=== PATIENT | female | born 2000 | race Caucasian/White ===

== ENCOUNTER 2020-10-28 06:24 | Emergency (ER) | payer MEDICAID ==
[~2020-10-28] VITALS: Ht 170.2 cm; Wt 101.0 kg
[2020-10-28 06:35] VITALS: BP 160/95
[2020-10-28] MEDS ORDERED: PYRIDOXINE 100 MG/ML VIAL. IV ONE (06:45)
[2020-10-28] MEDS ORDERED: IV NORMAL SALINE 1,000ML 1,000 ML IV ONE (06:45)
[2020-10-28] MEDS ORDERED: diphenhydrAMINE 50 MG/ML VIAL IVP ONE (06:45)
--- NOTE | 2020-10-28 06:45 | PHYS DOC ---
General Adult HPI: HPI: History of pain from patient. Patient is a 19-year-old female with past medical history significant for cholecystectomy who presents with chief complaint of nausea and vomiting. Patient states the first day of her last menstrual period was September 09, 2020. She states she developed nausea 1 week ago. She notes she has had multiple episodes of nonbloody nonbilious emesis over the past 3 days. Does note mild epigastric discomfort. She has tried Tums at home with minimal relief. She does states she has an ultrasound scheduled in 2 weeks for her care. She states she has not seen LIFE TRAINER yet. She notes she did not have any nausea or vomiting this severe with her previous . Denies any dysuria, hematuria, or polyuria. No syncope. Denies vaginal bleeding or discharge. Denies chest pain or shortness of breath. Denies fevers. No other complaints. Review of Systems: Review of Systems: Constitutional: Denies fever or chills Eyes: Denies change in visual acuity HENT: Denies nasal congestion or sore throat Respiratory: Denies cough or shortness of breath Cardiovascular: Denies chest pain or edema GI: Positive for nausea, vomiting, abdominal pain : Denies dysuria Musculoskeletal: Denies back pain or joint pain Integument: Denies rash Neurologic: Denies headache, focal weakness or sensory changes Endocrine: Denies polyuria or polydipsia Lymphatic: Denies swollen glands Psychiatric: Denies depression or anxiety Physical Exam: PE: Constitutional: Well developed, well nourished, no acute distress, non-toxic appearance. [] HENT: Normocephalic, atraumatic, bilateral external ears normal, oropharynx moist, no oral exudates, nose normal. [] Eyes: PERRLA, EOMI, conjunctiva normal, no discharge. [] Neck: Normal range of motion, no tenderness, supple, no stridor. [] Cardiovascular:Heart rate regular rhythm, no murmur [] Lungs & Thorax: Bilateral breath sounds clear to auscultation [] Abdomen: Soft, nontender, nonacute abdomen. No involuntary guarding or rigidity noted. No acute peritonitis. Skin: Warm, dry, no erythema, no rash. [] Back: No tenderness, no CVA tenderness. [] Extremities: No tenderness, no cyanosis, no clubbing, ROM intact, no edema. [] Neurologic: Alert and oriented X 3, normal motor function, normal sensory function, no focal deficits noted. [] Psychologic: Affect normal, judgement normal, mood normal. [] Current Patient Data: Labs: Laboratory Tests Test 10/28/20 06:58 10/28/20 08:31 White Blood Count 10.3 x10^3/uL Red Blood Count 5.42 x10^6/uL Hemoglobin 12.6 g/dL Hematocrit 39.1 % Mean Corpuscular Volume 72 fL Mean Corpuscular Hemoglobin 23 pg Mean Corpuscular Hemoglobin Concent 32 g/dL Red Cell Distribution Width 15.5 % Platelet Count 312 x10^3/uL Neutrophils (%) (Auto) 62 % Lymphocytes (%) (Auto) 30 % Monocytes (%) (Auto) 6 % Eosinophils (%) (Auto) 2 % Basophils (%) (Auto) 1 % Neutrophils # (Auto) 6.4 x10^3uL Lymphocytes # (Auto) 3.1 x10^3/uL Monocytes # (Auto) 0.6 x10^3/uL Eosinophils # (Auto) 0.2 x10^3/uL Basophils # (Auto) 0.1 x10^3/uL Maternal Serum HCG Beta Subunit 58914 mIU/mL Sodium Level 138 mmol/L Potassium Level 3.4 mmol/L Chloride Level 103 mmol/L Carbon Dioxide Level 23 mmol/L Anion Gap 12 Blood Urea Nitrogen 7 mg/dL Creatinine 0.6 mg/dL Estimated GFR (Cockcroft-Gault) 127.5 BUN/Creatinine Ratio 12 Glucose Level 89 mg/dL Calcium Level 8.9 mg/dL Magnesium Level 1.8 mg/dL Total Bilirubin 0.3 mg/dL Aspartate Amino Transf (AST/SGOT) 18 U/L Alanine Aminotransferase (ALT/SGPT) 36 U/L Alkaline Phosphatase 87 U/L Total Protein 7.4 g/dL Albumin 3.4 g/dL Albumin/Globulin Ratio 0.9 Lipase 87 U/L Urine Collection Type Unknown Urine Color Yellow Urine Clarity Hazy Urine pH 6.0 Urine Specific [place] >=1.030 Urine Protein Neg Urine Glucose (UA) Neg mg/dL Urine Ketones (Stick) Neg mg/dL Urine Blood Mod Urine Nitrite Neg Urine Bilirubin Neg Urine Urobilinogen Dipstick 0.2 mg/dL Urine Leukocyte Esterase Trace Urine RBC 20-40 /HPF Urine WBC 5-10 /HPF Urine Squamous Epithelial Cells Mod /LPF Urine Bacteria Mod /HPF Urine Mucus Slight /LPF Current Medications Medications (Trade) Dose Ordered Sig/[place] Route PRN Reason Start Time Stop Time Status Last Admin Dose Admin Sodium Chloride 1,000 ml @ 1,000 mls/hr 1X ONCE IV 10/28/20 06:45 10/28/20 07:44 DC 10/28/20 08:00 Diphenhydramine HCl (Benadryl) 50 mg 1X ONCE IVP 10/28/20 06:45 10/28/20 07:01 DC 10/28/20 08:00 Pyridoxine HCl (Vitamin B6) 25 mg 1X ONCE IV 10/28/20 06:45 10/28/20 07:01 DC 10/28/20 06:45 Famotidine (Pepcid Vial) 20 mg 1X ONCE IVP 10/28/20 07:00 10/28/20 07:01 DC 10/28/20 08:00 Promethazine HCl (Phenergan) 25 mg 1X ONCE PO 10/28/20 08:15 10/28/20 08:19 DC 10/28/20 08:15 Vital Signs: Vital Signs Date Time Temp Pulse Resp B/P (MAP) Pulse Ox O2 Delivery O2 Flow Rate FiO2 10/28/20 06:35 98.6 96 18 160/95 (116) 100 Room Air EKG: EKG: [] Radiology/Procedures: Radiology/Procedures: [address] [address] IMAGING REPORT Signed PATIENT: MANINDER BEY ACCOUNT: [id number] : 2000 LOCATION: ER AGE: 19 SEX: F EXAM STATUS: REG ER ORD. PHYSICIAN: DOMO NOGUERA DO REASON: abdominal pain with . no previous US PROCEDURE: OB <14 WKS W/TV Transvaginal obstetric ultrasound less than 14 weeks HISTORY: Abdominal pain with . FINDINGS: Transabdominal imaging is limited visualization of uterus and ovaries, there is a intrauterine gestational sac noted. Transvaginal sonography demonstrates anteverted uterus measuring 9.4 x 6.0 x 5.2 cm. There is a fundal intrauterine gestational sac with a pole crown-rump length 0.51 cm estimating sonographic gestational age of 6 weeks 2 days and estimated date of delivery June 21, 2021. Active cardiac activity is noted on the saved imaging clips and heart rate on M-mode Doppler sonography is 113 bpm. No subchorionic hemorrhage. Subjectively normal volume of amniotic fluid. Small yolk sac is noted with a diameter of 0.3 cm. Right ovary measures 4.8 x 1.6 x 3.0 cm. Small right ovarian follicles. There is a right ovarian 2.4 x 1.1 x 1.6 cm oval hypoechoic thick-walled cystic focus with peripheral hypervascularity typical of a corpus luteum. Intact right ovarian blood flow. Left ovary could not be visualized. There is a small volume of free fluid at the left adnexa. Cervix visually is long and closed the length was not measured by the garment worker although likely approaches 3 cm. IMPRESSION: Single viable intrauterine with estimated sonographic gestational age of 6 weeks 2 days. Probable right ovarian corpus luteum, attention on follow-up will be of benefit. See above. Electronically signed by: Amina Moctezuma MD (10/28/2020 8:12 AM) [id number] DICTATED AND SIGNED BY: AMINA MOCTEZUMA MD DATE: 10/28/20808 CC: PCPLATASHA; DOMO NOGUERA DO ~MTH0 0 [] Heart Score: Risk Factors: Risk Factors: DM, Current or recent (<one month) smoker, HTN, HLP, family history of CAD, obesity. Risk Scores: Score 0 - 3: 2.5% MACE over next 6 weeks - Discharge Home Score 4 - 6: 20.3% MACE over next 6 weeks - Admit for Clinical Observation Score 7 - 10: 72.7% MACE over next 6 weeks - Early Invasive Strategies Course & Med Decision Making: Course & Med Decision Making Pertinent Labs and Imaging studies reviewed. (See chart for details) [] Patient is a well-appearing 19-year-old female who presents with chief complaint of nausea and vomiting associated . Initial vital signs unremarkable. Exam overall reassuring and noted above. ultrasound does confirm an intrauterine estimated age 6 weeks and 2 days. Basic labs were obtained and but showed no significant lecture light abnormalities. Labs not consistent with hyperemesis gravidarum. Urinalysis does show some bacteria. Given her current status she will given a short course of Keflex. Urine culture will be sent. Patient's nausea has been well controlled in the emergency department. She was given IV fluids. She has tolerated p.o. Repeat abdominal exam is benign. Patient is appropriate for discharge home. She will discharge home with antiemetics. Instructed to follow-up with her primary care physician as well as her LIFE TRAINER in the next 2 to 3 days. Return precautions discussed and understood. Stable for discharge home. Dragon Disclaimer: Dragon Disclaimer: This electronic medical record was generated, in whole or in part, using a voice recognition dictation system. Departure Departure: Impression: Primary Impression: Qualified Codes: Z3A.01 - Less than 8 weeks gestation of Additional Impression: Nausea and vomiting Qualified Codes: R11.2 - Nausea with vomiting, unspecified Disposition: 01 DC HOME SELF CARE/HOMELESS Condition: STABLE Referrals: PCP,NO (PCP) Patient Instructions: Nausea and Vomiting Scripts Metoclopramide Hcl (REGLAN) 5 Mg Tablet 1 TAB PO TID PRN PRN for NAUSEA, #10 TAB 0 Refills Prov: DOMO NOGUERA DO 10/28/20 Cephalexin (CEPHALEXIN) 500 Mg Capsule 1 CAP PO BID for uti for 5 Days, #10 CAP Prov: DOMO NOGUERA DO 10/28/20 DOMO NOGUERA DO Oct 28, 2020 06:45
[2020-10-28] MEDS ORDERED: FAMOTIDINE 20 MG/2 ML VIAL IVP ONE (07:00)
[2020-10-28 07:18] LABS: BASO # 0.1 x10^3/uL (0.0-0.2); BASO % 1 % (0-3); EOS # 0.2 x10^3/uL (0.0-0.7); EOS % 2 % (0-3); HEMATOCRIT 39.1 % (36.0-47.0); HEMOGLOBIN 12.6 g/dL (12.0-15.5); LYMPH # 3.1 x10^3/uL (1.0-4.8); LYMPH % 30 % (24-48); MEAN CORPUSCULAR HEMOGLOBIN 23 pg (25-35); MEAN CORPUSCULAR HGB CONC 32 g/dL (31-37); MEAN CORPUSCULAR VOLUME 72 fL (79-100); MONO # 0.6 x10^3/uL (0.0-1.1); MONO % 6 % (0-9); NEUT # 6.4 x10^3uL (1.8-7.7); NEUT % 62 % (31-73); PLATELET COUNT 312 x10^3/uL (140-400); RED BLOOD COUNT 5.42 x10^6/uL (3.50-5.40); RED CELL DISTRIBUTION WIDTH 15.5 % (11.5-14.5); WHITE BLOOD COUNT 10.3 x10^3/uL (4.0-11.0)
[2020-10-28 07:24] LABS: CALCIUM 8.9 mg/dL (8.5-10.1); CREATININE 0.6 mg/dL (0.6-1.0); GFR 127.5; POTASSIUM 3.4 mmol/L (3.5-5.1)
[2020-10-28 07:30] LABS: ALBUMIN 3.4 g/dL (3.4-5.0); ALBUMIN/GLOBULIN RATIO 0.9 (1.0-1.7); MAGNESIUM 1.8 mg/dL (1.8-2.4); TOTAL BILIRUBIN 0.3 mg/dL (0.2-1.0); TOTAL PROTEIN 7.4 g/dL (6.4-8.2)
[2020-10-28] MEDS ORDERED: PROMETHAZINE 25 MG TABLET. PO ONE (08:15)
--- NOTE | 2020-10-28 08:15 | RAD ---
Transvaginal obstetric ultrasound less than 14 weeks HISTORY: Abdominal pain with . FINDINGS: Transabdominal imaging is limited visualization of uterus and ovaries, there is a intrauter ine gestational sac noted. Transvaginal sonography demonstrates anteverted uterus measuring 9.4 x 6.0 x 5.2 cm. There is a laureano l intrauterine gestational sac with a pole crown-rump length 0.51 cm estimating sonographic ges tational age of 6 weeks 2 days and estimated date of delivery June 21, 2021. Active cardiac a ctivity is noted on the saved imaging clips and heart rate on M-mode Doppler sonography is 113 bpm. No subchorionic hemorrhage. Subjectively normal volume of amniotic fluid. Small yolk sac is note d with a diameter of 0.3 cm. Right ovary measures 4.8 x 1.6 x 3.0 cm. Small right ovarian follicles. There is a right ovarian 2.4 x 1.1 x 1.6 cm oval hypoechoic thick-walled cystic focus with peripheral hypervascularity typical of a corpus luteum. Intact right ovarian blood flow. Left ovary could not be visualized. There is a smal l volume of free fluid at the left adnexa. Cervix visually is long and closed the length was not barbara ured by the maintenance coordinator although likely approaches 3 cm. IMPRESSION: Single viable intrauterine with estimated sonographic gestational age of 6 week s 2 days. Probable right ovarian corpus luteum, attention on follow-up will be of benefit. See above. Electronically signed by: Marek Moctezuma MD (10/28/2020 8:12 AM) [id number]
[2020-10-28 09:21] LABS: BACTERIA,URINE MOD /HPF (0-FEW); BILIRUBIN,URINE NEG (NEG); CLARITY,URINE HAZY; COLOR,URINE YELLOW; GLUCOSE,URINE NEG (NEG); NITRITE,URINE NEG (NEG); RBC,URINE 20-40 /HPF (0-2); UROBILINOGEN,URINE 0.2 mg/dL (0.2 mg/dL)
[2020-10-28 09:22] LABS: SQUAMOUS EPITHELIAL CELL,UR MOD /LPF
[2020-10-28] MEDS ORDERED: CEPH500C PO (09:31)
[2020-10-28] MEDS ORDERED: METO5TAB55 PO (09:31)
== END 2020-10-28 09:39 | disposition home or self-care (01) ==
LOC: ER 06:24
DX: O21.9 Vomiting of pregnancy, unspecified (principal); Z3A.01 Less than 8 weeks gestation of pregnancy
CPT/HCPCS: 36415; 76801; 76817; 80053; 81001; 83690; 83735; 84702; 85025; 87086; 96361; 96374; 96375; 99284; J1200; J3415; J3490; J7030; Q0169

== ENCOUNTER 2021-01-13 19:42 | Emergency (ER) | payer MEDICAID ==
[~2021-01-13] VITALS: Ht 170.2 cm; Wt 95.0 kg
[~2021-01-13 19:42] MED LIST: CEPH500C PO; METO5TAB55 PO
[2021-01-13 20:00] VITALS: BP 138/67
--- NOTE | 2021-01-13 20:10 | PHYS DOC ---
Past History Past Medical History: Kidney Stones Past Surgical History: Cholecystectomy Alcohol Use: None General Adult EDM: Chief Complaint: ABDOMINAL PAIN IN HPI: HPI: 20-year-old female presents with sudden onset left flank pain. She describes the pain is a sharp sensation of moderate intensity. She is 18 weeks . She has a history of kidney stones. She states that the pain has radiated around to the lower pelvis at this time. She denies any cramping, contractions, or vaginal bleeding. Denies fever or chills. She has had trouble with nausea throughout her . [employer] does not work for her. She is feeling nauseated at this time. Review of Systems: Review of Systems: Constitutional: Denies fever or chills Eyes: Denies change in visual acuity HENT: Denies nasal congestion or sore throat Respiratory: Denies cough or shortness of breath Cardiovascular: Denies chest pain or edema GI: Suprapubic pain, left flank pain, nausea, vomiting. Denies bloody stools or diarrhea : Denies dysuria Musculoskeletal: Denies back pain or joint pain Integument: Denies rash Neurologic: Denies headache, focal weakness or sensory changes Endocrine: Denies polyuria or polydipsia Lymphatic: Denies swollen glands Psychiatric: Denies depression or anxiety Allergies: Allergies: Allergies Coded Allergies Type Severity Reaction Last Updated Verified No Known Allergies Allergy Unknown 10/28/20 Yes Physical Exam: PE: Constitutional: Well developed, well nourished, no acute distress, non-toxic appearance. [] HENT: Normocephalic, atraumatic, bilateral external ears normal, oropharynx moist, no oral exudates, nose normal. [] Eyes: PERRLA, EOMI, conjunctiva normal, no discharge. [] Neck: Normal range of motion, no tenderness, supple, no stridor. [] Cardiovascular: Heart rate regular rhythm, no murmur [] Lungs & Thorax: Bilateral breath sounds clear to auscultation [] Abdomen: Bowel sounds normal, gravid uterus, no tenderness.[] Skin: Warm, dry, no erythema, no rash. [] Back: No tenderness, mild left CVA tenderness. [] Extremities: No tenderness, no cyanosis, no clubbing, ROM intact, no edema. [] Neurologic: Alert and oriented X 3, normal motor function, normal sensory function, no focal deficits noted. [] Psychologic: Affect normal, judgement normal, mood normal. [] Current Patient Data: Labs: Laboratory Tests Test 01/13/21 20:00 POC Urine HCG, Qualitative hcg positive (Negative) Vital Signs: Vital Signs Date Time Temp Pulse Resp B/P (MAP) Pulse Ox O2 Delivery O2 Flow Rate FiO2 01/13/21 20:00 97.3 112 20 138/67 (90) 96 Room Air EKG: EKG: [] Radiology/Procedures: Radiology/Procedures: [] Impressions: EXAM: RENAL/RETROPERITONAL ULTRASOUND. HISTORY: Flank pain in , history of renal stones. COMPARISON: None. FINDINGS: Ultrasound of the kidneys, bladder and retroperitoneum was performed. The right kidney measures 12.7 cm. Cortical thickness and echogenicity are preserved. There is no hydronephrosis. An extrarenal pelvis is suspected. The left kidney measures 13.3 cm. Cortical thickness and echogenicity are preserved. The left renal pelvis and calyces are mildly prominent. Images of the bladder reveal no gross abnormality. Both ureteral jets are visualized. The abdominal aorta and inferior vena cava are grossly patent and normal in caliber. A gravid uterus is noted. IMPRESSION: 1. Mild prominence of the left renal collecting system may be an incidental finding the setting of . No stones are identified sonographically. Both ureteral jets are visualized. Electronically signed by: Tristin Carrera MD (01/13/2021 9:47 PM) [facility] DICTATED AND SIGNED BY: ASIF CARRERA MD DATE: 01/13/212144 CC: ORLANDO MONTES CNM; KIA CALDWELL DO ~MTH0 0 Heart Score: C/O Chest Pain: N/A Risk Factors: Risk Factors: DM, Current or recent (<one month) smoker, HTN, HLP, family history of CAD, obesity. Risk Scores: Score 0 - 3: 2.5% MACE over next 6 weeks - Discharge Home Score 4 - 6: 20.3% MACE over next 6 weeks - Admit for Clinical Observation Score 7 - 10: 72.7% MACE over next 6 weeks - Early Invasive Strategies Course & Med Decision Making: Course & Med Decision Making Pertinent Labs and Imaging studies reviewed. (See chart for details) Patient's labs are unremarkable. Ultrasound shows no definitive kidney stone. See official report for more details. I did give the patient Tylenol for her discomfort but she vomited. It seems likely that this was a passed kidney stone. I have made the patient aware of these results. She is stable for discharge at this time. [] Dragon Disclaimer: Dragon Disclaimer: This electronic medical record was generated, in whole or in part, using a voice recognition dictation system. Departure Departure: Impression: Primary Impression: Kidney stone complicating Additional Impression: UTI (urinary tract infection) Disposition: HOME / SELF CARE / HOMELESS Condition: STABLE Referrals: ORLANDO MONTES CNM (PCP) Patient Instructions: Kidney Stones, [place] Scripts Cephalexin (CEPHALEXIN) 500 Mg Tablet 1 TAB PO BID for UTI for 5 Days, #10 TAB Prov: KIA CALDWELL DO 01/13/21 KIA CALDWELL DO Jan 13, 2021 20:10
[2021-01-13] MEDS ORDERED: diphenhydrAMINE 50 MG/ML VIAL IVP ONE (20:15)
[2021-01-13 20:26] LABS: BACTERIA,URINE 0 /HPF (0-FEW); BILIRUBIN,URINE NEG (NEG); CLARITY,URINE CLEAR; COLOR,URINE COLORLESS; GLUCOSE,URINE NEG (NEG); NITRITE,URINE POS (NEG); RBC,URINE 0 /HPF (0-2); UROBILINOGEN,URINE 0.2 mg/dL (0.2 mg/dL); WBC,URINE 0 /HPF (0-4)
[2021-01-13 20:27] LABS: SQUAMOUS EPITHELIAL CELL,UR FEW /LPF
[2021-01-13 20:35] LABS: BASO # 0.1 x10^3/uL (0.0-0.2); BASO % 1 % (0-3); EOS # 0.1 x10^3/uL (0.0-0.7); EOS % 2 % (0-3); HEMATOCRIT 35.8 % (36.0-47.0); HEMOGLOBIN 12.1 g/dL (12.0-15.5); LYMPH % 25 % (24-48); MEAN CORPUSCULAR HEMOGLOBIN 26 pg (25-35); MEAN CORPUSCULAR HGB CONC 34 g/dL (31-37); MEAN CORPUSCULAR VOLUME 76 fL (79-100); MONO # 0.5 x10^3/uL (0.0-1.1); MONO % 6 % (0-9); NEUT # 5.5 x10^3uL (1.8-7.7); NEUT % 67 % (31-73); PLATELET COUNT 267 x10^3/uL (140-400); RED BLOOD COUNT 4.73 x10^6/uL (3.50-5.40); RED CELL DISTRIBUTION WIDTH 16.5 % (11.5-14.5); WHITE BLOOD COUNT 8.2 x10^3/uL (4.0-11.0)
[2021-01-13 20:45] LABS: CALCIUM 8.8 mg/dL (8.5-10.1); CREATININE 0.6 mg/dL (0.6-1.0); GFR 126.2; POTASSIUM 3.4 mmol/L (3.5-5.1)
[2021-01-13 20:50] LABS: ALBUMIN 2.9 g/dL (3.4-5.0); ALBUMIN/GLOBULIN RATIO 0.7 (1.0-1.7); TOTAL BILIRUBIN 0.2 mg/dL (0.2-1.0); TOTAL PROTEIN 7.1 g/dL (6.4-8.2)
[2021-01-13] MEDS ORDERED: ONDANSETRON PF 4 MG/2 ML VIAL. IVP ONE (21:00)
[2021-01-13] MEDS ORDERED: ACETAMINOPHEN 500 MG TABLET PO ONE (21:00)
--- NOTE | 2021-01-13 21:50 | RAD ---
EXAM: RENAL/RETROPERITONAL ULTRASOUND. HISTORY: Flank pain in , history of renal stones. COMPARISON: None. FINDINGS: Ultrasound of the kidneys, bladder and retroperitoneum was performed. The right kidney measures 12.7 cm. Cortical thickness and echogenicity are preserved. There is no hyd ronephrosis. An extrarenal pelvis is suspected. The left kidney measures 13.3 cm. Cortical thickness and echogenicity are preserved. The left renal p shelbi and calyces are mildly prominent. Images of the bladder reveal no gross abnormality. Both ureteral jets are visualized. The abdominal a janett and inferior vena cava are grossly patent and normal in caliber. A gravid uterus is noted. IMPRESSION: 1. Mild prominence of the left renal collecting system may be an incidental finding the setting of pr egnancy. No stones are identified sonographically. Both ureteral jets are visualized. Electronically signed by: Tristin Carrera MD (01/13/2021 9:47 PM) [facility]
[2021-01-13] MEDS ORDERED: CEPHALEXIN 250 MG CAPSULE PO ONE (23:30)
[2021-01-13] MEDS ORDERED: CEPH500T PO (23:36)
== END 2021-01-13 23:46 | disposition home or self-care (01) ==
LOC: ER 19:42
DX: O23.42 Unspecified infection of urinary tract in pregnancy, second trimester (principal); O26.832 Pregnancy related renal disease, second trimester; N20.0 Calculus of kidney; Z90.49 Acquired absence of other specified parts of digestive tract; Z3A.18 18 weeks gestation of pregnancy
CPT/HCPCS: 36415; 76770; 80053; 81001; 81025; 85025; 87086; 96374; 96375; 99284; J1200; J2405

== ENCOUNTER 2021-01-20 16:02 | Emergency (ER) | payer MEDICAID ==
[~2021-01-20] VITALS: Ht 170.2 cm; Wt 94.1 kg
[~2021-01-20 16:02] MED LIST changes: +CEPH500T PO
[2021-01-20 16:13] VITALS: BP 115/72
[2021-01-20] MEDS ORDERED: diphenhydrAMINE 50 MG/ML VIAL IVP ONE (17:00)
[2021-01-20] MEDS ORDERED: METOCLOPRAMIDE HCL 10 MG/2 ML VIAL. IVP ONE (17:00)
[2021-01-20 17:10] LABS: BASO % 0 % (0-3); EOS # 0.1 x10^3/uL (0.0-0.7); EOS % 1 % (0-3); HEMATOCRIT 35.3 % (36.0-47.0); HEMOGLOBIN 11.9 g/dL (12.0-15.5); LYMPH # 1.7 x10^3/uL (1.0-4.8); LYMPH % 19 % (24-48); MEAN CORPUSCULAR HEMOGLOBIN 26 pg (25-35); MEAN CORPUSCULAR HGB CONC 34 g/dL (31-37); MEAN CORPUSCULAR VOLUME 76 fL (79-100); MONO # 0.5 x10^3/uL (0.0-1.1); MONO % 6 % (0-9); NEUT # 6.6 x10^3uL (1.8-7.7); NEUT % 74 % (31-73); PLATELET COUNT 282 x10^3/uL (140-400); RED BLOOD COUNT 4.64 x10^6/uL (3.50-5.40); RED CELL DISTRIBUTION WIDTH 16.2 % (11.5-14.5); WHITE BLOOD COUNT 8.9 x10^3/uL (4.0-11.0)
[2021-01-20 17:14] LABS: CALCIUM 8.9 mg/dL (8.5-10.1); CREATININE 0.6 mg/dL (0.6-1.0); GFR 126.2; POTASSIUM 3.3 mmol/L (3.5-5.1)
[2021-01-20] MEDS ORDERED: IV NORMAL SALINE 1,000ML 1,000 ML IV ONE (17:15)
[2021-01-20] MEDS ORDERED: ACETAMINOPHEN 500 MG TABLET PO ONE (17:15)
[2021-01-20 17:27] LABS: ALBUMIN 2.8 g/dL (3.4-5.0); ALBUMIN/GLOBULIN RATIO 0.7 (1.0-1.7); TOTAL BILIRUBIN 0.3 mg/dL (0.2-1.0)
--- NOTE | 2021-01-20 18:14 | EKG ---
[address] [address] Test Date: 2021-01-20 Test Time: 17:02:21 Pat Name: MANINDER BEY Department: Room: Gender: F Legal Financial Specialist: HARITHA : 2000 Requested By: ARLETTE MARVIN Order Number: [id number] Reading MD: Measurements Intervals [place] Rate: 99 P: 35 [place]: 164 QRS: -38 QRSD: 102 T: 18 QT: 348 QTc: 452 Interpretive Statements SINUS RHYTHM ABNORMAL LEFT AXIS DEVIATION LEFT ANTERIOR FASCICULAR BLOCK INCOMPLETE RIGHT BUNDLE BRANCH BLOCK ABNORMAL ECG RI6.02 No previous ECG available for comparison
--- NOTE | 2021-01-20 18:41 | PHYS DOC ---
Past History Past Medical History: Depression, Kidney Stones (STEVEN MARVIN APRN) Past Surgical History: Cholecystectomy Additional Past Surgical Histo: ADENOIDS (STEVEN MARVIN APRN) Alcohol Use: None (STEVEN MARVIN APRN) Adult General Chief Complaint Chief Complaint: ABDOMINAL PAIN HPI HPI Patient is a 20-year-old female who presents emergency department complaining of right-sided kidney pain that started 8 days ago. Patient reports she was seen here 8 days ago and was diagnosed with a urinary tract infection. Patient states that the next day she was seen by her [employer] Amanda Aleman who sent her to [facility] ER to test her for pyelonephritis which she did not have and was recommended she continue her Keflex regimen over 5 days. Patient states that each and every day she has had right sided flank pain that radiates down to her low abdomen with vomiting shortness of breath dizziness and feeling "woozy ". Patient denies any rashes of her skin, denies any swelling of her legs. Patient denies any immediate family history of blood clotting diseases however she believes her grandfather might have had a blood clot. Patient states that she cannot feel her baby move however she has not been able to feel her baby move throughout this . Patient states that a abdominal sonogram was done last week to look at her kidney which noted movement and a heartbeat. Patient states that she is concerned that she still has kidney pain and believes she might have a kidney stone or a kidney infection. Patient denies any other physical complaints or physical concerns. Patient reports her last menstrual cycle was 09 September, states estimated date of confinement June 16, 2021, 2 para 1. (STEVEN MARVIN APRN) Review of Systems Review of Systems Constitutional: Denies fever or chills [] Eyes: Denies change in visual acuity, redness, or eye pain [] HENT: Denies nasal congestion or sore throat [] Respiratory: Denies cough or shortness of breath [] Cardiovascular: No additional information not addressed in HPI [] GI: Denies abdominal pain, nausea, vomiting, bloody stools or diarrhea [] : Denies dysuria or hematuria [] Musculoskeletal: Denies back pain or joint pain [] Integument: Denies rash or skin lesions [] Neurologic: Denies headache, focal weakness or sensory changes [] Endocrine: Denies polyuria or polydipsia [] All other systems were reviewed and found to be within normal limits, except as documented in this note. (STEVEN MARVIN APRN) Current Medications Current Medications Current Medications Medications (Trade) Dose Ordered Sig/Ansley Start Time Stop Time Status Last Admin Dose Admin Acetaminophen (Tylenol) 1,000 mg 1X ONCE 01/20/21 17:15 01/20/21 17:16 DC Diphenhydramine HCl (Benadryl) 25 mg 1X ONCE 01/20/21 17:00 01/20/21 17:02 DC 01/20/21 17:11 25 MG Metoclopramide HCl (Reglan Vial) 5 mg 1X ONCE 01/20/21 17:00 01/20/21 17:02 DC 01/20/21 17:10 5 MG Sodium Chloride 1,000 ml @ 1,000 mls/hr 1X ONCE 01/20/21 17:15 01/20/21 17:54 DC 01/20/21 17:11 1,000 MLS/HR (STEVEN MARVIN APRN) Allergies Allergies Allergies Coded Allergies Type Severity Reaction Last Updated Verified No Known Allergies Allergy Unknown 10/28/20 Yes (STEVEN MARVIN APRN) Physical Exam Physical Exam Constitutional: Well developed, well nourished, no acute distress, non-toxic appearance. Patient anxious and tearful during physical examination. Patient is in no respiratory distress. HENT: Normocephalic, atraumatic, bilateral external ears normal, oropharynx moist, no oral exudates, nose normal. Eyes: PERRLA, EOMI, conjunctiva normal, no discharge. Neck: Normal range of motion, no tenderness, supple, no stridor. No meningismus signs, no nuchal rigidity. Cardiovascular:Heart rate regular rhythm, no murmur, heart sounds S1-S2 to auscultation. Lungs & Thorax: Bilateral breath sounds clear to auscultation no adventitious lung sounds appreciated. Abdomen: Bowel sounds normal, soft, no tenderness, no masses, no pulsatile masses. No bruising or ecchymotic areas noted to the abdomen. No rashes noted to the abdomen. Skin: Warm, dry, no erythema, no rash. No rashes or lesions noted to skin. Back: No midline spinal tenderness appreciated, no left-sided CVA tenderness appreciated, positive right-sided CVA tenderness to light palpation that radiates down right flank across to right sided pelvic area. Extremities: No tenderness, no cyanosis, no clubbing, ROM intact, no edema. No swelling of lower extremities, no edema appreciated, +2/4 pulses, distal cap refill less than 2 seconds. Neurologic: Alert and oriented X 3, normal motor function, normal sensory function, no focal deficits noted. Psychologic: Affect normal, judgement normal, mood normal. (STEVEN MARVIN APRN) Physical Exam Constitutional: Well developed, well nourished, tearful, non-toxic appearance HENT: Normocephalic, atraumatic Eyes: Conjunctiva normal, no discharge Neck: Normal range of motion, supple Lungs & Thorax: No respiratory distress, equal chest rise and fall Abdomen: Soft, gravid Skin: Warm, dry, no erythema, stretch singh to abdomen and flanks with back acne noted without vesicular rash Back: No tenderness, right CVA tenderness Extremities: No tenderness, ROM intact, no edema Neurologic: Alert and oriented X 3, no focal deficits noted Psychologic: Affect anxious, judgment normal (STEVEN KENNY DO) Current Patient Data Vital Signs Vital Signs Date Time Temp Pulse Resp B/P (MAP) Pulse Ox O2 Delivery O2 Flow Rate FiO2 01/20/21 17:00 110 22 98 01/20/21 16:13 98.4 115/72 (86) Room Air Lab Results Laboratory Tests Test 01/20/21 16:29 White Blood Count 8.9 x10^3/uL (4.0-11.0) Red Blood Count 4.64 x10^6/uL (3.50-5.40) Hemoglobin 11.9 g/dL (12.0-15.5) L Hematocrit 35.3 % (36.0-47.0) L Mean Corpuscular Volume 76 fL (79-100) L Mean Corpuscular Hemoglobin 26 pg (25-35) Mean Corpuscular Hemoglobin Concent 34 g/dL (31-37) Red Cell Distribution Width 16.2 % (11.5-14.5) H Platelet Count 282 x10^3/uL (140-400) Neutrophils (%) (Auto) 74 % (31-73) H Lymphocytes (%) (Auto) 19 % (24-48) L Monocytes (%) (Auto) 6 % (0-9) Eosinophils (%) (Auto) 1 % (0-3) Basophils (%) (Auto) 0 % (0-3) Neutrophils # (Auto) 6.6 x10^3uL (1.8-7.7) Lymphocytes # (Auto) 1.7 x10^3/uL (1.0-4.8) Monocytes # (Auto) 0.5 x10^3/uL (0.0-1.1) Eosinophils # (Auto) 0.1 x10^3/uL (0.0-0.7) Basophils # (Auto) 0.0 x10^3/uL (0.0-0.2) Sodium Level 138 mmol/L (136-145) Potassium Level 3.3 mmol/L (3.5-5.1) L Chloride Level 104 mmol/L (98-107) Carbon Dioxide Level 21 mmol/L (21-32) Anion Gap 13 (6-14) Blood Urea Nitrogen 5 mg/dL (7-20) L Creatinine 0.6 mg/dL (0.6-1.0) Estimated GFR (Cockcroft-Gault) 126.2 BUN/Creatinine Ratio 8 (6-20) Glucose Level 111 mg/dL (70-99) H Calcium Level 8.9 mg/dL (8.5-10.1) Total Bilirubin 0.3 mg/dL (0.2-1.0) Aspartate Amino Transferase (AST) 13 U/L (15-37) L Alanine Aminotransferase (ALT) 18 U/L (14-59) Alkaline Phosphatase 103 U/L (46-116) Total Protein 7.0 g/dL (6.4-8.2) Albumin 2.8 g/dL (3.4-5.0) L Albumin/Globulin Ratio 0.7 (1.0-1.7) L Lipase 68 U/L (73-393) L (STEVEN MARVIN APRN) EKG EKG EKG performed at 1702 by house respiratory therapy staff shows normal sinus rhythm without ectopy heart rate 99 bpm, MO interval 0.164, QTc interval 0.452, no acute STEMI, no ACS, no acute ischemia appreciated, EKG interpreted by ED attending physician Dr. Kenny. (STEVEN MARVIN APRN) Radiology/Procedures Radiology/Procedures [] (STEVEN MARVIN APRN) Heart Score C/O Chest Pain: No Risk Factors: Risk Factors: DM, Current or recent (<one month) smoker, HTN, HLP, family history of CAD, obesity. Risk Scores: Risk Factors: DM, Current or recent (<one month) smoker, HTN, HLP, family history of CAD, obesity. (STEVEN MARVIN APRN) Course & Med Decision Making Course & Med Decision Making Pertinent Labs and Imaging studies reviewed. (See chart for details) 20-year-old female, vital signs reviewed, presents emergency department complaining of ongoing right flank pain that started 8 days ago. Patient's physical examination concerning for possible pyelonephritis versus kidney stone versus other acute infectious process. Related to patient being 19 weeks 1 day , will order heart tones, urinalysis assay, serum lab work to include CBC, BMP, lipase, EKG. Will order saline lock, 1 L normal saline, patient reports an allergy to Zofran, will give 25 mg IV Benadryl along with 5 mg IV Reglan for relief of nausea. Will consider anxiolytic however at this time will hold until lab results and reexamination after Benadryl and Reglan infusion. Discussed patient with ED attending Dr. Kenny who examined patient at bedside. Dr. Kenny myself and patient made a joint decision to consider CT angio chest to rule out possibility of pulmonary emboli, patient elected to wait for urinalysis results and lab results first. Patient remains tearful at this time. Will reconsider CT angio chest pending lab results. ED nurse advised me patient eloped ED at 1730 leaving her saline lock at bedside, ED nurse states she was unable to complete heart tones related to patient elopement. (STEVEN MARVIN APRN) Course & Med Decision Making Examined patient with Steven WRIGHT given report of right flank pain with pleuritic component. Patient appears very anxious. Hx of recent ED visit and workup for similar. Reviewed recent renal US per [employer] review. Patient also reporting being seen at [facility] and undergoing MRI for further evaluation which was reportedly also negative. UA without significant findings. No signs of DVT on exam. Sats stable. Patient tachycardic with tachypnea upon arrival, but also tearful and anxious. While PE appears less likely patient advised cannot fully exclude. Discussed risks and benefits of CTA chest. Plan was to reassess patient's symptoms after controlling nausea and after results of laboratory data and heart tones. Prior to this results, patient reportedly eloped and as such takes upon her the risks or doing so including, but not limited to, permanent disability and/or for both herself and her fetus. (STEVEN KENNY DO) Dragon Disclaimer Dragon Disclaimer This electronic medical record was generated, in whole or in part, using a voice recognition dictation system. (STEVEN MARVIN APRN) Departure Departure: Impression: Primary Impression: Eloped from emergency department Additional Impressions: Flank pain Disposition: LEFT AWOL/ELOPED Condition: GUARDED Referrals: ORLANDO MONTES CNM (PCP) Attending Signature Attending Signature I have personally interviewed and examined the patient. All charts, labs, and imaging studies were reviewed. I agree with the PA/MAGISTRATE's findings, exam, and plan. (STEVEN KENNY DO) Problem Qualifiers Additional Impressions: Weeks of gestation: 19 weeks Qualified Codes: Z3A.19 - 19 weeks gestation of STEVEN MARVIN APRN January 20, 2021 18:41 STEVEN KENNY DO January 21, 2021 06:27
== END 2021-01-20 17:38 | disposition left against medical advice (07) ==
LOC: ER 16:02
DX: O26.892 Other specified pregnancy related conditions, second trimester (principal); R10.9 Unspecified abdominal pain; O21.9 Vomiting of pregnancy, unspecified; Z87.442 Personal history of urinary calculi; Z3A.19 19 weeks gestation of pregnancy
CPT/HCPCS: 36415; 80053; 83690; 85025; 93005; 96374; 96375; 99284; J1200; J2765; J7030

== ENCOUNTER 2021-03-06 22:38 | Emergency (ER) | payer MEDICAID ==
[~2021-03-06] VITALS: Ht 170.2 cm; Wt 96.0 kg
--- NOTE | 2021-03-06 23:12 | PHYS DOC ---
Past History Past Medical History: Depression, Kidney Stones Past Surgical History: Cholecystectomy Additional Past Surgical Histo: ADENOIDS Alcohol Use: None General Adult HPI: HPI: ".. I fracture my hip in 6th grade.. and I ve had problems ever since... I pregnany now.. 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 it seems to aggravate it... Patient is a 20 year old female who presents with above hx and complaints of 27 weeks preg. and complaints of Hip dislocation or hip pain. Review of Systems: Review of Systems: Constitutional: Denies fever or chills Eyes: Denies change in visual acuity HENT: Denies nasal congestion or sore throat Respiratory: Denies cough or shortness of breath Cardiovascular: Denies chest pain or edema GI: Denies abdominal pain, nausea, vomiting, bloody stools or diarrhea : Denies dysuria Musculoskeletal: Denies back pain or joint pain Integument: Denies rash Neurologic: Denies headache, focal weakness or sensory changes Endocrine: Denies polyuria or polydipsia Lymphatic: Denies swollen glands Psychiatric: Denies depression or anxiety Allergies: Allergies: Allergies Coded Allergies Type Severity Reaction Last Updated Verified No Known Allergies Allergy Unknown 10/28/20 Yes Physical Exam: PE: Constitutional: Well developed, well nourished, no acute distress, non-toxic appearance. [] HENT: Normocephalic, atraumatic, bilateral external ears normal, oropharynx moist, no oral exudates, nose normal. [] Eyes: PERRLA, EOMI, conjunctiva normal, no discharge. [] Neck: Normal range of motion, no tenderness, supple, no stridor. [] Cardiovascular:Heart rate regular rhythm, no murmur [] Lungs & Thorax: Bilateral breath sounds clear to auscultation [] Abdomen: Bowel sounds normal, soft, no tenderness, no masses, no pulsatile masses. [] Skin: Warm, dry, no erythema, no rash. [] Back: No tenderness, no CVA tenderness. [] Extremities: No tenderness, no cyanosis, no clubbing, ROM intact, no edema. [] Neurologic: Alert and oriented X 3, normal motor function, normal sensory function, no focal deficits noted. [] Psychologic: Affect normal, judgement normal, mood normal. [] EKG: EKG: [] Radiology/Procedures: Radiology/Procedures: [] Heart Score: Risk Factors: Risk Factors: DM, Current or recent (<one month) smoker, HTN, HLP, family history of CAD, obesity. Risk Scores: Score 0 - 3: 2.5% MACE over next 6 weeks - Discharge Home Score 4 - 6: 20.3% MACE over next 6 weeks - Admit for Clinical Observation Score 7 - 10: 72.7% MACE over next 6 weeks - Early Invasive Strategies Course & Med Decision Making: Course & Med Decision Making Pertinent Labs and Imaging studies reviewed. (See chart for details) [] Dragon Disclaimer: Dragon Disclaimer: This electronic medical record was generated, in whole or in part, using a voice recognition dictation system. Departure Departure: Referrals: ORLANDO MONTES CNM (PCP) YVES PABLO MD Mar 06, 2021 23:12
[2021-03-07] MEDS ORDERED: OXYC-325 PO (00:33)
[2021-03-07 00:45] VITALS: BP 131/86
[2021-03-07 00:50] LABS: BILIRUBIN,URINE NEG (NEG); CLARITY,URINE CLEAR; COLOR,URINE YELLOW; GLUCOSE,URINE NEG (NEG); NITRITE,URINE NEG (NEG); UROBILINOGEN,URINE 0.2 mg/dL (0.2 mg/dL)
[2021-03-07 00:51] LABS: BACTERIA,URINE MOD /HPF (0-FEW); SQUAMOUS EPITHELIAL CELL,UR OCC /LPF; WBC,URINE 20-40 /HPF (0-4)
== END 2021-03-07 00:45 | disposition home or self-care (01) ==
LOC: ER 22:38
DX: O26.892 Other specified pregnancy related conditions, second trimester (principal); M25.559 Pain in unspecified hip; M54.30 Sciatica, unspecified side; Z3A.27 27 weeks gestation of pregnancy; Z90.49 Acquired absence of other specified parts of digestive tract; Z87.442 Personal history of urinary calculi
CPT/HCPCS: 81001; 87086; 99283

== ENCOUNTER 2021-06-30 15:12 | Emergency (ER) | payer MEDICAID ==
[~2021-06-30] VITALS: Ht 170.2 cm; Wt 91.8 kg
[~2021-06-30 15:12] MED LIST changes: +OXYC-325 PO
[2021-06-30 15:31] VITALS: BP 123/88
[2021-06-30] MEDS ORDERED: IV NORMAL SALINE 1,000ML 1,000 ML IV ONE (16:30)
[2021-06-30] MEDS ORDERED: METOCLOPRAMIDE HCL 10 MG/2 ML VIAL. IVP ONE (16:30)
--- NOTE | 2021-06-30 18:04 | PHYS DOC ---
Past History Past Medical History: Asthma, Depression, Kidney Stones (ARLETTE MARVIN APRN) Past Surgical History: Cholecystectomy, Additional Past Surgical Histo: ADENOIDS (ARLETTE MARVIN APRN) Alcohol Use: None (ARLETTE MARVIN APRN) Adult General Chief Complaint Chief Complaint: ABDOMINAL PAIN HPI HPI Patient is a 20-year-old female who presents to the emergency department complaining of nausea and vomiting after eating what she thinks was bad fish yesterday approximately 1830. Patient reports 6 bouts of watery diarrhea today and vomited 4 times today noting yellow vomitus, denies seeing blood in her vomitus or stool. Patient denies abdominal pain. Patient reports ongoing nausea. Patient reports her last menstrual cycle was September [id number], patient reports being 13 days . Patient states she breast-feeds at home. Patient denies other physical complaints or physical concerns. (ARLETTE MARVIN APRN) Review of Systems Review of Systems 14 body systems of review of systems have been reviewed. See HPI for pertinent positives and negative responses, otherwise all other systems are negative, nonpertinent or noncontributory. Constitutional: Negative except as outlined in HPI above. Skin: Negative except as outlined in HPI above. Eyes: Negative except as outlined in HPI above. HENT: Negative except as outlined in HPI above. Respiratory: Negative except as outlined in HPI above. Cardiovascular: Negative except as outlined in HPI above. GI: Negative except as outlined in HPI above. : Negative except as outlined in HPI above. Musculoskeletal: Negative except as outlined in HPI above. Integument: Negative except as outlined in HPI above. Neurologic: Negative except as outlined in HPI above. Endocrine: Negative except as outlined in HPI above. Lymphatic: Negative except as outlined in HPI above. Psychiatric: Negative except as outlined in HPI above. (ARLETTE MARVIN APRN) Current Medications Current Medications Current Medications Medications (Trade) Dose Ordered Sig/Ansley Start Time Stop Time Status Last Admin Dose Admin Metoclopramide HCl (Reglan Vial) 10 mg 1X ONCE 06/30/21 16:30 06/30/21 16:42 DC Sodium Chloride 1,000 ml @ 1,000 mls/hr 1X ONCE 06/30/21 16:30 06/30/21 16:43 DC (ARLETTE MARVIN APRN) Allergies Allergies Allergies Coded Allergies Type Severity Reaction Last Updated Verified nitrofurantoin Allergy Severe Swelling 03/06/21 Yes ondansetron Allergy Severe Itching 03/06/21 Yes (ARLETTE MARVIN APRN) Physical Exam Physical Exam Constitutional: Well developed, well nourished, no acute distress, non-toxic appearance. 20-year-old female in no apparent distress. HENT: Normocephalic, atraumatic. Eyes: Conjunctiva normal, no discharge. Neck: Normal range of motion, no stridor. Cardiovascular: No cyanosis appreciated, distal cap refill less than 2 seconds. Lungs & Thorax: Patient is in no respiratory distress, no audible adventitious lung sounds appreciated. Abdomen: Nontender, no abnormalities noted. Skin: Warm, dry, no erythema, no rash. Back: No tenderness, no deformities. Extremities: No tenderness, no cyanosis, no clubbing, ROM intact, no edema. Neurologic: Alert and oriented X 3, normal motor function, normal sensory function, no focal deficits noted. Psychologic: Affect normal, judgement normal, mood normal. (ARLETTE MARVIN APRN) Current Patient Data Vital Signs Vital Signs Date Time Temp Pulse Resp B/P (MAP) Pulse Ox O2 Delivery O2 Flow Rate FiO2 06/30/21 15:31 98.2 97 16 123/88 (100) 98 Room Air (ARLETTE MARVIN APRN) EKG EKG [] (ARLETTE MARVIN APRN) Radiology/Procedures Radiology/Procedures [] (ARLETTE MARVIN APRN) Heart Score C/O Chest Pain: No Risk Factors: Risk Factors: DM, Current or recent (<one month) smoker, HTN, HLP, family history of CAD, obesity. Risk Scores: Risk Factors: DM, Current or recent (<one month) smoker, HTN, HLP, family history of CAD, obesity. (ARLETTE MARVIN APRN) Course & Med Decision Making Course & Med Decision Making Pertinent Labs and Imaging studies reviewed. (See chart for details) 20-year-old female, vital signs reviewed, presents emergency department concerning nausea vomiting after ED which she thinks was bad fish yesterday. Patient's physical presentation consistent with gastroenteritis, will order GI work-up. Patient's ED nurse reports patient was not in room for blood draw and ongoing ED care, patient has eloped from ED. (ARLETTE MARVIN APRN) Course & Med Decision Making I was the Attending physician on the above date of service of this patient. This patient was evaluated, examined, treated, and dispositioned from the emergency department by the mid-level practitioner. Although I was working at the time , no assistance was requested. Electronically signed, Quynh Bennett DO (QUYNH BENNETT DO) Elda Disclaimer Dragon Disclaimer This electronic medical record was generated, in whole or in part, using a voice recognition dictation system. (ARLETTE MARVIN APRN) Departure Departure: Impression: Primary Impression: Eloped from emergency department Disposition: 07 LEFT AWOL/ELOPED Condition: STABLE Referrals: DAVID BEAR MD (PCP) ARLETTE MARVIN APRN Jun 30, 2021 18:04 QUYNH BENNETT DO Jul 01, 2021 07:16
== END 2021-06-30 16:40 | disposition left against medical advice (07) ==
LOC: ER 15:12
DX: O90.89 Other complications of the puerperium, not elsewhere classified (principal); R11.2 Nausea with vomiting, unspecified; R19.7 Diarrhea, unspecified; J45.909 Unspecified asthma, uncomplicated; Z87.442 Personal history of urinary calculi; Z90.49 Acquired absence of other specified parts of digestive tract; Z98.890 Other specified postprocedural states; Z88.8 Allergy status to other drugs, medicaments and biological substances
CPT/HCPCS: 99281